=== PATIENT | female | born 2005 | race Caucasian/White ===

== ENCOUNTER 2023-08-02 16:25 | Inpatient (IN) | payer BC ==
[2023-08-02] VITALS (19 sets, daily range): BP systolic 97–118; BP diastolic 51–68; PULSE 81–123; TEMP 97.8–98.4
[~2023-08-02] VITALS: Ht 165.1 cm; Wt 72.7 kg
[~2023-08-02 16:25] MED LIST: CEPHALEXIN500 M1 PO; MACRODANTIN100 PO
[2023-08-02] MEDS ORDERED: LR & Oxytocin 500 ML IV SCH ×2 (17:45)
[2023-08-02] MEDS ORDERED: LR 1,000 ML IV SCH (17:45)
[2023-08-02 18:24] LABS: BASO % 0.2 % (0.0-2.0); EOS % 0.2 % (0.0-4.0); GRAN # 13.4 K/mm3 (1.4-6.5); GRAN % 79.8 % (42.2-75.2); HEMOGLOBIN 10.9 g/dl (12.0-15.0); LYMPH % 11.7 % (20.0-51.0); MEAN CELL VOLUME 83 fl (80.0-95.0); MEAN CORPUSCULAR HEMOGLOBIN 27 pg (26-32); MEAN CORPUSCULAR HGB CONC 33 g/dl (33.0-37.0); MEAN PLATELET VOLUME 10.7 fl (7.4-10.4); MONO # 1.3 K/mm3 (0.1-0.6); MONO % 7.4 % (1.7-9.3); PLATELET COUNT 296 K/mm3 (130-400); RED BLOOD COUNT 4.03 M/mm3 (4.10-5.30); REDCELL DISTRIBUTION WIDTH-CV 13.6 % (11.5-14.5)
[2023-08-02 18:25] LABS: HEMATOCRIT 33.5 % (35.0-45.0)
[2023-08-02] MEDS ORDERED: diphenhydrAMINE 25 MG CAP PO PRN (19:00)
[2023-08-02] MEDS ORDERED: Ondansetron 4 MG/2 ML VIAL IV PRN (19:00)
[2023-08-02] MEDS ORDERED: Naloxone 0.4 MG/ML VIAL IV PRN ×2 (19:00→23:45)
[2023-08-02] MEDS ORDERED: diphenhydrAMINE 50 MG/ML 1 ML VIAL IV PRN (19:00)
[2023-08-02] MEDS ORDERED: ePHEDrine 50 MG/10 ML VIAL IV PRN (19:00)
[2023-08-02] MEDS ORDERED: ROPivacaine PF 0.2% 200 ML IV ONE (19:05)
--- NOTE | 2023-08-02 19:15 | NUR ---
1903- PT SITTING UP FOR EPIDURAL PLACEMENT. BP CUFF SET TO EVERY 5 MINUTES, PULSE OX IN PLACE. 1905- Maik LLAMAS CRNA IN ROOM FOR EPIDURAL PLACEMENT. RISKS AND BENEFITS REVIEWED, VERBAL AND WRITTEN CONSENT GIVEN BY PT. 1911- SINGLE SHOT GIVEN BY Maik LLAMAS CRNA, PT TOLERATED WELL. 1915- PT REPOSTITIONED TO SEMIFOWLERS.
[2023-08-02] MEDS ORDERED: traZODone 50 MG TAB PO PRN (21:00)
--- NOTE | 2023-08-02 22:45 | NUR ---
2224- DR. GOMES IN ROOM, SVE OF /+1. PT REPOSITIONED TO BRIDGER POSITION TO LABOR DOWN. 2235- CAMACHO DCd, 75MLS URINE OUT.
--- NOTE | 2023-08-02 23:15 | NUR ---
2244- PT BEGINS PUSHING WITH THIS NURSE. 225- PT PUSHING WELL, DR. GOMES IN ROOM TO EVALUATE. 225- BED BROKEN DOWN FOR DELIVERY. DR. GOMES AND THIS NURSE REMAIN AT BEDSIDE. 230- SPONTANEOUS VAGINAL DELIVERY OF VIABLE BABY GIRL. BABY TO MOTHER'S CHEST. DRIED AND STIMULATED, SPONTANEOUS CRY NOTED. BABY CARES ASSUMED BY Matthew GALINDO RN. 2307- SPONTANEOUS DELIVERY OF INTACT PLACENTA OVER 1ST DEGREE LACERATION. PITOCIN STARTED AT 333ML/HR PER PROTOCOL. DR. GOMES BEGINS REPAIR. 2215- RECOVERY STARTED.
[2023-08-02] MEDS ORDERED: Mag/Al Hydrox/Simeth Susp 30 ML CUP PO PRN (23:45)
[2023-08-02] MEDS ORDERED: Magnes Hydrox (MOM) 80 MG/ML 30 ML CUP PO PRN (23:45)
[2023-08-02] MEDS ORDERED: Acetaminophen 500 MG TAB PO SCH (23:45)
[2023-08-02] MEDS ORDERED: Ibuprofen 800 MG TAB PO SCH (23:45)
[2023-08-02] MEDS ORDERED: Witch Hazel 50% Pads Bulk TUB TP PRN (23:45)
[2023-08-02] MEDS ORDERED: Measles/Mumps/Rubella Virus Vaccine Live w Diluent 0.5 ML VIAL SQ SCH (23:45)
[2023-08-02] MEDS ORDERED: Loratadine 10 MG TAB PO PRN (23:45)
[2023-08-02] MEDS ORDERED: Phenylephrine/Mineral Oil/Petrolatum 57 GM TUBE RC PRN (23:45)
[2023-08-03] VITALS (9 sets, daily range): BP systolic 101–116; BP diastolic 54–72; PULSE 77–100; TEMP 97.9–99
--- NOTE | 2023-08-03 03:00 | NUR ---
0230- PT ABLE TO LIFT LEGS AT THIS TIME BUT PT UNABLE TO HOLD OWN WEIGHT AND WALK. PT TO BATHROOM VIA [facility]. UNABLE TO VOID. PT RETURNED TO BED VIA [facility]. 0240- STRAIGHT CATH PERFORMED, 700MLS URINE OUT. PERICARE PROVIDED, ICE PACK AND MESH UNDERWEAR APPLIED. 0250- EPIDURAL REMOVED, BLUE TIP INTACT. 0300- PT TRANSFERRED TO ROOM VIA [facility]. ORIENTED TO ROOM. PT DENIES QUESTIONS/CONCERNS AT THIS TIME. DENIES PAIN OR NEED FOR PAIN MEDS.
[2023-08-03] MEDS ORDERED: MOTRIN 800800 MG/TAB PO (06:46)
[2023-08-03] MEDS ORDERED: Sennosides/Docusate 8.6-50 MG TAB PO SCH (08:00)
--- NOTE | 2023-08-03 09:44 | NUR ---
Initial visit; Parents thanked Dcs Engineer for offering congratulations and God's blessings for the of their daughter. Auntie vu Elizabeth. Dcs Engineer thanked family for choosing [facility].
--- NOTE | 2023-08-03 11:20 | NUR ---
PT AMBUALTES ONTO THE UNIT FOR A LABOR CHECK DUE TO CONTRACTIONS.PT DENIES LOF/VB.PT REPORT POSITIVE MOVEMENT.EFM AND TOCO APPLIED AND TRACING CATEGORY 2.POC AND EDUCATIONS REVIEWED WITH PT.PT VERBALIZES UNDERSTANDING.
[2023-08-04 07:20] VITALS: BP 115/72; PULSE 78; TEMP 97.7
[2023-08-04] MEDS ORDERED: TYLENOL 500MG500 MG PO (07:24)
[2023-08-04] MEDS ORDERED: Influenza Virus Vaccine, Quad '23-24 (6 MOS+) 0.5 ML SYRINGE IM SCH (11:45)
== END 2023-08-04 13:10 | disposition home or self-care (01) | DRG 807 ==
LOC: LDRO 16:25 → LDR 18:38 → OB 08-03 03:00
PROVIDERS: Student in an Organized Health Care Education/Training Program; ADMIT Obstetrics & Gynecology
PROC: 10E0XZZ Delivery of Products of Conception, External Approach (ICD-10-PCS; principal; 2023-08-02)
PROC: 0HQ9XZZ Repair Perineum Skin, External Approach (ICD-10-PCS; 2023-08-02)
DX: O69.81X0 Labor and delivery complicated by cord around neck, without compression, not applicable or unspecified (principal); Z37.0 Single live birth; Z3A.39 39 weeks gestation of pregnancy; O70.0 First degree perineal laceration during delivery; O76 Abnormality in fetal heart rate and rhythm complicating labor and delivery
CPT/HCPCS: J2405; J2795; J7120